=== PATIENT | female | born 1990 | race Caucasian/White ===

== ENCOUNTER 2017-01-14 09:05 | Emergency (ER) | payer OTHER ==
[2017-01-14 10:01] VITALS: BP 104/72
--- NOTE | 2017-01-14 10:23 | UC ---
Headache HPI - HPI Summary HPI Summary: Patient has hx of migraines, she has been experienceing on and off headaches daily for the past 2 weeks. She has been under alot of stress, does feel like she is tense. Excedrin does take the headache away. Currently not having a MARQUES but wants to get checked out. - History Of Current Complaint Chief Complaint: UCHeadache Stated Complaint: HEADACHE Time Seen by Provider: 01/14/17 10:01 Hx Obtained From: Patient Hx Last Menstrual Period: 12/11/16 ?: No Onset/Duration: Sudden Onset, Lasting Weeks Onset Of Symptoms: Gradual Initially Headache Was: Moderate Currently Pain Is: Mild Timing: Intermittent, Lasting: - hours Character: Dull, Migraine, Unable To Describe - changes locations Location of Headache: Diffuse Aggravating Factor: Nothing Allevating Factors: Medication - Allergies/Home Medications Allergies/Adverse Reactions: Allergies Allergy/AdvReac Type Severity Reaction Status Date / Time seasonal Allergy Congestion Uncoded 01/14/17 09:53 PMH/Surg Hx/FS Hx/Imm Hx Previously Healthy: Yes - Surgical History Surgical History: Yes Surgery Procedure, Year, and Place: tonsils 2002, acid reflux surgery - Family History Known Family History: Positive: None, Cardiac Disease - Social History Alcohol Use: Occasionally Substance Use Type: None Smoking Status (MU): Never Smoked Tobacco Have You Smoked in the Last Year: No - Immunization History Most Recent Influenza Vaccination: NONE Most Recent Tetanus Shot: 2004 Most Recent Pneumonia Vaccination: N/A Review of Systems Constitutional: Fatigue Skin: Negative Eyes: Negative ENT: Negative Respiratory: Negative Cardiovascular: Negative Gastrointestinal: Negative Genitourinary: Negative Motor: Negative Neurovascular: Negative Musculoskeletal: Negative Neurological: Headache Psychological: Negative All Other Systems Reviewed And Are Negative: Yes Physical Exam Triage Information Reviewed: Yes Appearance: Well-Appearing, Well-Nourished, Pain Distress Vital Signs: Initial Vital Signs Temp 98.3 F 01/14/17 09:54 Pulse 77 01/14/17 09:54 Resp 16 01/14/17 09:54 BP 104/72 01/14/17 09:54 Pulse Ox 100 01/14/17 09:54 Vital Signs Reviewed: Yes Eye Exam: Normal Eyes: Positive: Conjunctiva Clear ENT: Positive: Hearing grossly normal, Pharynx normal, Other: - bilteral cerumen impaction Dental Exam: Normal Neck exam: Normal Neck: Positive: Supple, No Lymphadenopathy, Other: - upper traps and scalenes palpable tightness Respiratory Exam: Normal Respiratory: Positive: Chest non-tender, Lungs clear, Normal breath sounds Cardiovascular Exam: Normal Cardiovascular: Positive: RRR, No Murmur, Pulses Normal Abdominal Exam: Normal Abdomen Description: Positive: Nontender, No Organomegaly, Soft Bowel Sounds: Positive: Present Musculoskeletal Exam: Normal Musculoskeletal: Positive: Strength Intact, ROM Intact, No Edema Neurological Exam: Normal Neurological: Positive: Alert, Muscle Tone Normal, Other: - PERRLA, Cranial nerves intact, EOMI, Psychological Exam: Normal Skin Exam: Normal Headache Course/Dx - Course Course Of Treatment: hx obtained, exam performed, meds reviewed, bilateral ear irrigation - Differential Dx/Diagnosis Differential Diagnosis/HQI/PQRI: Meningitis, Migraine, Sinus Headache, Tension Headache, Viral Syndrome Provider Diagnoses: headache tension Discharge - Discharge Plan Condition: Stable Disposition: HOME Patient Education Materials: Tension Headache (ED), Serous Otitis Media (ED) Referrals: Toby Emmanuel MD [Primary Care Provider] - Additional Instructions: 1. Get plenty of rest and reduce stress level. 2. Follow up with a primary provider about your control. 3. Non pharmacological treatment for headaches can include; Massage, Danielle and peppermint oils, warm compresses and stretching to the back of the neck. 4. your right ear had fluid behind it, I recommend a daily decongestant for the next two weeks to help the fluid drain.
== END 2017-01-14 11:27 | disposition home or self-care (01) ==
LOC: UCCORT 09:05
DX: G44.209 Tension-type headache, unspecified, not intractable (principal); H61.23 Impacted cerumen, bilateral
CPT/HCPCS: 99213; G0463

== ENCOUNTER 2017-10-04 18:33 | Emergency (ER) | payer BC ==
--- NOTE | 2017-10-04 20:34 | UC ---
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 hx benign heart murmur - History of Current Complaint Chief Complaint: UCGeneralIllness Stated Complaint: SORE THROAT Time Seen by Provider: 10/04/17 20:12 Hx Obtained From: Patient Hx Last Menstrual Period: 18 WEEKS Onset/Duration: Sudden Onset, Lasting Days Timing: Constant Severity Initially: Moderate Severity Currently: Moderate Pain Intensity: 4 Pain Scale Used: 0-10 Numeric Character: Cough: Nonproductive Aggravating Factors: Nothing Alleviating Factors: Nothing Associated Signs And Symptoms: Positive: Nasal Congestion - Allergies/Home Medications Allergies/Adverse Reactions: Allergies Allergy/AdvReac Type Severity Reaction Status Date / Time seasonal Allergy Congestion Uncoded 10/04/17 19:58 Home Medications: Home Medications Ondansetron TAB* [Zofran 4 MG Tab*] 4 mg PO Q6H PRN 10/04/17 [History Confirmed 10/04/17] 95/Iron Fum/Folic/Dha [ Multivitamin + D] 1 mis PO DAILY [History Confirmed 10/04/17] PMH/Surg Hx/FS Hx/Imm Hx Previously Healthy: Yes Neurological History: Seizures - Surgical History Surgical History: Yes Surgery Procedure, Year, and Place: tonsils 2001. nikkie fundoplication AGE 5 - Family History Known Family History: Positive: None, Cardiac Disease - Social History Alcohol Use: Occasionally Substance Use Type: None Smoking Status (MU): Never Smoked Tobacco Have You Smoked in the Last Year: No - Immunization History Most Recent Tetanus Shot: 2004 Review of Systems Constitutional: Fatigue Skin: Negative Eyes: Negative ENT: Nasal Discharge, Sinus Congestion Respiratory: Cough Cardiovascular: Negative Gastrointestinal: Negative Genitourinary: Negative Motor: Negative Neurovascular: Negative Musculoskeletal: Negative Neurological: Negative Psychological: Negative Is Patient Immunocompromised?: No All Other Systems Reviewed And Are Negative: Yes Physical Exam Triage Information Reviewed: Yes Appearance: Well-Appearing, No Pain Distress, Well-Nourished Vital Signs: Initial Vital Signs Temp 99.2 F 10/04/17 19:54 Pulse 140 10/04/17 19:54 Resp 14 10/04/17 19:54 BP 124/67 10/04/17 19:54 Pulse Ox 99 10/04/17 19:54 Vital Signs Reviewed: Yes Eyes: Positive: Conjunctiva Clear ENT: Positive: Pharynx normal, Nasal congestion, Nasal drainage, TMs normal, Uvula midline. Negative: Tonsillar swelling, Tonsillar exudate, Trismus, Muffled voice, Hoarse voice, Sinus tenderness Neck: Positive: Supple, Nontender, No Lymphadenopathy Respiratory: Positive: Lungs clear, Normal breath sounds, No respiratory distress, No accessory muscle use Cardiovascular: Positive: RRR, Tachycardia. Negative: No Murmur Abdomen Description: Positive: Nontender - gravid uterus Musculoskeletal: Positive: ROM Intact, No Edema Neurological: Positive: Alert Skin Exam: Normal UC Diagnostic Evaluation - Laboratory O2 Sat by Pulse Oximetry: 99 - normal/not hypoxic - EKG Cardiac Rate: Tachycardia - 119 Cardiac Rhythm: Sinus: Normal Ectopy: None ST Segment: Normal Respiratory Course/Dx - Course Course Of Treatment: strep (-). 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
[2017-10-04 20:56] VITALS: BP 116/68
[2017-10-04] MEDS ORDERED: Oseltamivir CAP* 75 MG CAP PO ONE ×2 (20:56→20:57)
== END 2017-10-04 21:09 | disposition home or self-care (01) ==
LOC: UCCORT 18:33
DX: J11.1 Influenza due to unidentified influenza virus with other respiratory manifestations (principal); R00.0 Tachycardia, unspecified; R56.9 Unspecified convulsions
CPT/HCPCS: 87502; 87651; 93005; 99213; A9270-GY; G0463

== ENCOUNTER 2018-01-20 01:56 | Inpatient (IN) | payer BC ==
[2018-01-20] MEDS ORDERED: Betamethasone INJ* 6 MG/ML 5 ML VIAL (30 MG) IM ONE (02:52)
[2018-01-20] MEDS ORDERED: Azithromycin TAB* 250 MG PO ONE (02:54)
[2018-01-20 03:56] LABS: Hematocrit 32 % (35-47); Hemoglobin 10.7 g/dl (12.0-16.0); Mean Corpuscular HGB Conc 34 g/dl (31-36); Mean Corpuscular Hemoglobin 31 pg (27-31); Mean Corpuscular Volume 91 fL (80-97); Mean Platelet Volume 6.7 um3 (7.4-10.4); Platelet Count 286 10^3/ul (150-450); Red Blood Count 3.47 10^6/ul (4.0-5.4); Red Cell Distribution Width 13 % (10.5-15)
[2018-01-20] MEDS: Ampicillin IV* 2 GM in NS 0.9% 100 ML* 100 ML IVPB SCH ×4 (03:56→23:50)
[2018-01-20 04:16] LABS: ABS Basophils 0.1 10^3/ul (0-0.2); ABS Eosinophils 0.1 10^3/ul (0-0.6); ABS Lymphocytes 2.6 10^3/ul (1.0-4.8); ABS Neutrophils 9.1 10^3/ul (1.5-7.7)
[2018-01-20 04:53] LABS: ABS Nucleated RBC 0 10^3/ul; Eosinophil % 0.7 % (0-6); Lymphocyte % 20.4 % (25-47); Nucleated Red Blood Cells % 0.1
--- NOTE | 2018-01-20 07:12 | HP ---
General Information - General Information Maternal Age: 27 Grav: 1 Para: 0 SAB: 0 IEA: 0 Estimated Due Date: 03/04/18 Determined By: LMP Gestational Age in Weeks and Days: 33 Weeks and 6 Days Maternal Blood Type and Rh: A Negative - Results this Serology/RPR Result: Non-Reactive Rubella Result: Immune HBsAg Result: Negative HIV Result: Negative Past Medical History Pertinent Past Medical History: See Records Pertinent Past Surgical History: See Records Pertinent Family History: Non-Contributory - Antepartal Records Antepartal Records: Reviewed, Uncomplicated Review of Systems Constitutional: Comfortable CV Complaint: No Respiratory: Shortness of Breath: No Gastrointestinal: No Nausea/Vomiting Genitourinary: Leaking Fluid - Woke up with the bed soaked at about 1am, No Dysuria, No Bleeding Musculoskeletal: Back Pain - minimal intermittent back pain Neurological: No Headache Movement: Normal Exam Allergies/Adverse Reactions: Allergies lavender (Lavandula angustifolia) Allergy (Verified 01/20/18 02:42) See Comment seasonal Allergy (Uncoded 10/04/17 19:58) Congestion Lab Values - Entire Visit: Laboratory Tests 01/20/18 01/20/18 01/20/18 02:15 03:47 03:47 WBC 13.0 H RBC 3.47 L Hgb 10.7 L Hct 32 L MCV 91 MCH 31 MCHC 34 RDW 13 Plt Count 286 MPV 6.7 L Neut % (Auto) 70.6 Lymph % (Auto) 20.4 L [place] % (Auto) 7.7 H Eos % (Auto) 0.7 Baso % (Auto) 0.6 Absolute Neuts (auto) 9.1 H Absolute Lymphs (auto) 2.6 Absolute Monos (auto) 1.0 H Absolute Eos (auto) 0.1 Absolute Basos (auto) 0.1 Absolute Nucleated RBC 0 Nucleated RBC % 0.1 Vag Amniotic Fld Detect Positive Blood Type A Negative Antibody Screen Positive Antibody Identification Anti-D Direct Antiglob Test Negative - Measurements Height: 5 ft Weight: 142 lb Weight in lbs: 142 Body Mass Index (BMI): 27.7 Pre- Weight: 121 lb Weight Gained This : 21 lbs and 0 ozs - Exam Abdomen: No Upper Quadrant Pain Breast: Breast Exam Deferred CVA: No CVA Tenderness Extremities: No Edema Heart: Normal Rhythm/Heart Sounds HEENT: No Significant Findings Targeted Exam Findings Presenting Part: Vertex Membrane Status: SROM Amniotic Fluid Evaluation: Gross Rupture, Positive ROM Plus, Clear EFM Findings - External Monitor Findings Baseline Heart Rate: 140 External Monitor Findings: Accelerations Present, No Pattern of Variable or Late Decelerations, Variability Moderate, Baseline Stable Contractions: Irregular Assessment/Plan - Reason for Visit Reason for Visit: @33.6wks with PPROM. Baby is vertex by bedside sono. Some back pain and irregular ctx but no signs of active labor. Will give betamethasone, latency abx and monitor. GBS swab done. - Obstetrical Risk Factors Obstetrical Risk Factors: GBS Unknown, - Plan Plan: Observe, IV Hydration, Antibiotic Prophylaxis, Steroids
[2018-01-20] MEDS ORDERED: Acetaminophen TAB* 325 MG PO PRN ×2 (12:06→16:36)
[2018-01-20] MEDS ORDERED: Ibuprofen TAB* 600 MG ONE (16:24)
[2018-01-20] MEDS ORDERED: Glycerin ADULT SUPP PR PRN (16:36)
[2018-01-20] MEDS ORDERED: Simethicone TAB* 80 MG TAB.CHEW PO SCH (17:30)
[2018-01-20] MEDS: Docusate CAP* 100 MG PO SCH (20:27)
[2018-01-20] MEDS: Witch Hazel PAD* JAR TOPICAL PRN (20:27)
[2018-01-20] MEDS: lamoTRIgine TAB(*) 100 MG PO SCH ×2 (20:27→20:42)
[2018-01-20] MEDS: Dibucaine 1% 28.35 GM TUBE PR PRN (20:27)
[2018-01-21] MEDS: Ibuprofen TAB* 600 MG PO PRN ×4 (01:39→20:09)
[2018-01-21] MEDS: Ampicillin IV* 2 GM in NS 0.9% 100 ML* 100 ML IVPB SCH (02:02)
--- NOTE | 2018-01-21 06:28 | PTEDU ---
Patient Name: DERICK KUMAR DERICK KUMAR selected video: Never Ever Shake a Baby to view on 01/21/2018 at 6:27:51 AM from [facility] – [place], [id number]
[2018-01-21 06:32] LABS: Hematocrit 29 % (35-47); Mean Corpuscular HGB Conc 34 g/dl (31-36); Mean Corpuscular Hemoglobin 31 pg (27-31); Mean Corpuscular Volume 91 fL (80-97); Mean Platelet Volume 6.8 um3 (7.4-10.4); Platelet Count 274 10^3/ul (150-450); Red Blood Count 3.21 10^6/ul (4.0-5.4); Red Cell Distribution Width 13 % (10.5-15); White Blood Count 23.1 10^3/ul (3.5-10.8)
[2018-01-21] MEDS: Ferrous Gluconate TAB* 324 MG TAB PO SCH ×2 (07:57→20:09)
[2018-01-21] MEDS: LAMOTRIGINE 200 MG PO SCH ×2 (07:58→21:14)
[2018-01-21] MEDS: Docusate CAP* 100 MG PO SCH ×3 (07:58→20:09)
[2018-01-21 08:40] LABS: ABS Basophils 0.1 10^3/ul (0-0.2); ABS Eosinophils 0 10^3/ul (0-0.6); ABS Lymphocytes 2.6 10^3/ul (1.0-4.8); ABS Monocytes 1.8 10^3/ul (0-0.8); ABS Neutrophils 18.6 10^3/ul (1.5-7.7); ABS Nucleated RBC 0 10^3/ul; Eosinophil % 0.1 % (0-6); Lymphocyte % 11.4 % (25-47); Nucleated Red Blood Cells % 0
[2018-01-21] MEDS ORDERED: RHO D Immune Globulin (HUMAN)* 300 MCG = 1,500 I.U. INJ IM ONE (12:01)
[2018-01-22] MEDS: Ibuprofen TAB* 600 MG PO PRN ×3 (06:29→18:30)
[2018-01-22] MEDS: Docusate CAP* 100 MG PO SCH ×2 (08:45→12:43)
[2018-01-22] MEDS: Ferrous Gluconate TAB* 324 MG TAB PO SCH (08:45)
[2018-01-22] MEDS: LAMOTRIGINE 200 MG PO SCH (08:46)
[2018-01-22] MEDS: Dibucaine 1% 28.35 GM TUBE PR PRN (12:44)
[2018-01-22] MEDS: Witch Hazel PAD* JAR TOPICAL PRN (12:44)
[2018-01-22 13:09] VITALS: BP 95/51
== END 2018-01-22 18:46 | disposition home or self-care (01) | DRG 560 ==
LOC: MCHOBOUT 01:56 → MCHOB 02:50
PROVIDERS: ADMIT Obstetrics & Gynecology; ATTEND Obstetrics & Gynecology
PROC: 10E0XZZ Delivery of Products of Conception, External Approach (ICD-10-PCS; principal; 2018-01-20)
PROC: 0KQM0ZZ Repair Perineum Muscle, Open Approach (ICD-10-PCS; 2018-01-20)
DX: O42.013 Preterm premature rupture of membranes, onset of labor within 24 hours of rupture, third trimester (principal); O99.354 Diseases of the nervous system complicating childbirth; G40.909 Epilepsy, unspecified, not intractable, without status epilepticus; O70.1 Second degree perineal laceration during delivery; Z3A.33 33 weeks gestation of pregnancy; Z37.0 Single live birth
CPT/HCPCS: 36415; 84112; 85025; 85461; 86850; 86870; 86880; 86900; 86901; 87070; 88307; A9270-GY; J0290; J0702; J2790

== ENCOUNTER 2019-04-23 09:06 | Emergency (ER) | payer BC ==
[2019-04-23 10:31] VITALS: BP 116/73
--- NOTE | 2019-04-23 10:56 | UC ---
General HPI - HPI Summary HPI Summary: Pt noticed a bump behind her L ear this am. Denies guevara lesions, URI and ear discomfort. Also upper back sore this am, only mentions that because of the bump. no cp, sob. Pt points to sides of her trapezius mm. - History of Current Complaint Chief Complaint: UCGeneralIllness Stated Complaint: SKIN COMPLAINT Time Seen by Provider: 04/23/19 10:33 Hx Obtained From: Patient Hx Last Menstrual Period: ~04/16/19 Pain Intensity: 1 - Allergy/Home Medications Allergies/Adverse Reactions: Allergies Allergy/AdvReac Type Severity Reaction Status Date / Time lavender (Lavandula Allergy See Comment Verified 04/23/19 10:26 angustifolia) seasonal Allergy Congestion Uncoded 04/23/19 10:26 Home Medications: Home Medications lamoTRIgine TAB(*) [LaMICtal TAB(*)] 50 mg PO BEDTIME 04/23/19 [History Confirmed 04/23/19] lamoTRIgine [Lamictal] 300 mg PO BEDTIME 04/23/19 [History Confirmed 04/23/19] lamoTRIgine [Lamotrigine] 300 mg PO QAM 04/23/19 [History Confirmed 04/23/19] PMH/Surg Hx/FS Hx/Imm Hx Previously Healthy: Yes Neurological History: Seizures - Surgical History Surgical History: Yes Surgery Procedure, Year, and Place: tonsils 2001. nikkie fundoplication AGE 5 - Family History Known Family History: Positive: None, Cardiac Disease - Social History Occupation: Employed Full-time Alcohol Use: None Substance Use Type: None Smoking Status (MU): Never Smoked Tobacco Have You Smoked in the Last Year: No - Immunization History Most Recent Influenza Vaccination: Declined 07/29 Most Recent Tetanus Shot: 2004 Most Recent Pneumonia Vaccination: Unknown Review of Systems All Other Systems Reviewed And Are Negative: No Constitutional: Negative: Fever, Chills Skin: Negative: Rash Respiratory: Negative: Shortness Of Breath, Cough Cardiovascular: Negative: Palpitations, Chest Pain Musculoskeletal: Negative: Decreased ROM Neurological: Negative: Weakness, Paresthesia, Numbness Physical Exam Triage Information Reviewed: Yes Appearance: Well-Appearing Vital Signs: Initial Vital Signs Temp 98.3 F 04/23/19 10:24 Pulse 100 04/23/19 10:24 Resp 16 04/23/19 10:24 BP 116/73 09/11/19 10:24 Pulse Ox 100 04/23/19 10:24 Vital Signs Reviewed: Yes Eyes: Positive: Conjunctiva Clear. Negative: Discharge ENT: Positive: Pharynx normal, TMs normal, Other - L posterior auricular adenopathy(single node). non tender. No additional auricula adenopathy. L auricle has a tiny pimple with yellow head and slight surrounding erythema.. Negative: Nasal congestion, Nasal drainage Neck: Positive: Supple, Nontender, No Lymphadenopathy Respiratory: Positive: No respiratory distress Musculoskeletal: Positive: Other: - Trapezius mm tenderness. Spine non tender. ROM neck/back intact. Neurological: Positive: Alert Psychological: Positive: Age Appropriate Behavior Skin Exam: Normal Skin: Negative: Rashes Course/Dx - Differential Dx - Multi-Symptom Differential Diagnoses: Other - Isolated L posterior auricular adenopathy. pimple with mild surrounding eryhtema on L inner auricula thus I think reactive. Will tx with Doxycycline with ent f/u for a recheck. Pt notes upper back soreness, points to trapezius mm and trapezius is tender. only mentionoed that because of bump behind her ear. she will tx that with an otc nsaid. - Diagnoses Provider Diagnosis: Posterior auricular pain of left ear Discharge ED - Sign-Out/Discharge Documenting (check all that apply): Patient Departure All imaging exams completed and their final reports reviewed: No Studies - Discharge Plan Condition: Stable Disposition: HOME Prescriptions: DOXYcycline CAP(*) [DOXYcycline 100MG CAP(*)] 100 mg PO BID 7 Days #14 cap Patient Education Materials: Lymphadenopathy (ED) Referrals: John Larios MD [Medical Doctor] - 7 Days Additional Instructions: FOLLOW UP WITH DR LARIOS OR ONE OF HIS ENT ASSOCIATES IN 1 WEEK FOR A RECHECK. ASK TO BE SEEN IN THE [facility] OFFICE. CALL TODAY FOR THAT FOLLOW UP. - Billing Disposition and Condition Condition: STABLE Disposition: Home
== END 2019-04-23 11:04 | disposition home or self-care (01) ==
LOC: UCCORT 09:06
DX: H92.02 Otalgia, left ear (principal); M54.6 Pain in thoracic spine; R56.9 Unspecified convulsions
CPT/HCPCS: 99212; G0463

== ENCOUNTER 2019-10-21 07:38 | Emergency (ER) | payer BC ==
[2019-10-21 07:50] VITALS: BP 105/75
--- NOTE | 2019-10-21 07:57 | UC ---
Throat Pain/Nasal Ronny HPI - HPI Summary HPI Summary: sore throat x 1 day pain is severe 7 out 10 , worse with swallowing, better with Tylenol dry cough for 2 or 3 days, mild nasal congestion low grade fever, chills - History of Current Complaint Chief Complaint: UCGeneralIllness Stated Complaint: SORE THROAT Time Seen by Provider: 10/21/19 07:44 Hx Obtained From: Patient Hx Last Menstrual Period: 10/02/19 ?: No Onset/Duration: Gradual Onset, Lasting Days - 1, Still Present Severity: Moderate Pain Intensity: 7 Associated Signs & Symptoms: Positive: Fever. Negative: Wheezing, Hoarseness, Sinus Discomfort, Nasal Discharge, Rash - Allergies/Home Medications Allergies/Adverse Reactions: Allergies Allergy/AdvReac Type Severity Reaction Status Date / Time lavender (Lavandula Allergy See Comment Verified 10/21/19 07:46 angustifolia) seasonal Allergy Congestion Uncoded 10/21/19 07:46 Home Medications: Home Medications lamoTRIgine [Lamotrigine] 300 mg PO QAM 04/23/19 [History Confirmed 10/21/19] Acetaminophen [Tylenol Extra Strength] 500 mg PO ONCE 10/21/19 [History Confirmed 10/21/19] PMH/Surg Hx/FS Hx/Imm Hx - Additional Past Medical History Additional PMH: Nocturnal Epilepsy - Surgical History Surgical History: Yes Surgery Procedure, Year, and Place: tonsils 2001. nikkie fundoplication AGE 5 - Family History Known Family History: Positive: None, Cardiac Disease - Social History Alcohol Use: None Substance Use Type: None Smoking Status (MU): Never Smoked Tobacco Have You Smoked in the Last Year: No - Immunization History Most Recent Influenza Vaccination: Declined 07/29 Most Recent Tetanus Shot: 2004 Most Recent Pneumonia Vaccination: Unknown Review of Systems All Other Systems Reviewed And Are Negative: Yes Constitutional: Positive: Negative Skin: Positive: Negative Eyes: Positive: Negative ENT: Positive: Sore Throat Respiratory: Positive: Cough Cardiovascular: Positive: Negative Is Patient Immunocompromised?: No Physical Exam Triage Information Reviewed: Yes Appearance: Well-Appearing, No Pain Distress, Well-Nourished Vital Signs: Initial Vital Signs Temp 99.8 F 10/21/19 07:45 Pulse 115 10/21/19 07:45 Resp 16 10/21/19 07:45 BP 105/75 10/21/19 07:45 Pulse Ox 100 03/10/20 07:45 Vital Signs Reviewed: Yes Eyes: Positive: Conjunctiva Clear ENT: Positive: Normal ENT inspection, Hearing grossly normal, Pharynx normal, TMs normal, Tonsillar swelling, Tonsillar exudate. Negative: TM bulging, TM dull, TM red Dental Exam: Normal Neck: Positive: Supple, Nontender, No Lymphadenopathy Respiratory: Positive: Chest non-tender, Lungs clear, Normal breath sounds, No respiratory distress, No accessory muscle use Cardiovascular: Positive: Tachycardia Abdomen Description: Positive: Nontender, Soft Bowel Sounds: Positive: Present Skin Exam: Normal Throat Pain/Nasal Course/Dx - Differential Dx/Diagnosis Provider Diagnosis: Pharyngitis Discharge ED - Sign-Out/Discharge Documenting (check all that apply): Patient Departure All imaging exams completed and their final reports reviewed: No Studies - Discharge Plan Condition: Stable Disposition: HOME Patient Education Materials: Pharyngitis (ED) Referrals: No Primary Care Phys,NOPCP [Primary Care Provider] - If Needed Additional Instructions: negative rapid strep viral illness - Billing Disposition and Condition Condition: STABLE Disposition: Home
== END 2019-10-21 08:08 | disposition home or self-care (01) ==
LOC: UCCORT 07:38
DX: J02.9 Acute pharyngitis, unspecified (principal); G40.802 Other epilepsy, not intractable, without status epilepticus; Z91.09 Other allergy status, other than to drugs and biological substances
CPT/HCPCS: 87651; 99211; G0463